=== PATIENT | male | born 1955 | race Caucasian/White ===

== ENCOUNTER → 2017-06-05 | Outpatient (CLI) | payer OTHER ==
[~2017-06-05] MED LIST: ALEVE LIQUID G220 MG PO; Aleve PO; CELEBREX200 MG PO; FEOSOL325 MG PO; Feosol PO; MOTRIN IB200 MG PO; Motrin PO; OXYCODONE HCL5 MG PO; THERAGRAN1 TABLET PO; Theragran PO; XARELTO10 MG PO
== END | disposition home or self-care (01) ==
LOC: NUC 10:06
DX: D71 Functional disorders of polymorphonuclear neutrophils (principal); R79.89 Other specified abnormal findings of blood chemistry
CPT/HCPCS: 71020; 78582; A9540; A9567